=== PATIENT | female | born 1955 | race Caucasian/White ===

== ENCOUNTER 2020-06-08 17:12 | Inpatient (IN) | payer MEDICAID ==
[~2020-06-08] VITALS: Ht 172.7 cm; Wt 83.2 kg
[2020-06-08] MEDS ORDERED: IPRATROPIUM BROM 0.5 MG/2.5ML INH SOL NEB ONE (17:18)
[2020-06-08] MEDS ORDERED: ALBUTEROL SULF 2.5 MG/0.5ML(0.5%) NEB SOLN NEB ONE (17:18)
[2020-06-08] MEDS ORDERED: methylPREDNISolone SOD SUCC 125 MG/2 ML VL ONE (17:22)
[2020-06-08] MEDS ORDERED: DOXYCYCLINE 100MG/250ML 250 ML IV ONE (18:30)
[2020-06-08] MEDS ORDERED: SODIUM CHLORIDE 0.9% 500 ML IV ONE ×2 (18:30→23:15)
[2020-06-08 19:35] LABS: Basophils # (auto) 0 10 ^3/uL (0-0.2); Basophils % (auto) 0.1 % (0.0-2.0); Eosinophils # (auto) 0 10 ^3/uL (0-0.8); Hematocrit 33.3 % (36.0-46.0); Hemoglobin 11.3 g/dL (12.2-16.2); Lymphocytes # (auto) 0.6 10 ^3/uL (0.4-5.4); Mean Corpuscular Hemoglobin 28.3 pg (28.0-32.0); Mean Corpuscular Hgb Conc. 33.8 g/dL (32.0-36.0); Mean Corpuscular Volume 83.8 fL (80.0-100.0); Monocytes # (auto) 0.4 10 ^3/uL (0-1.3); Monocytes % (auto) 5.4 % (0.0-12.0); Neutrophils # (auto) 6.5 10 ^3/uL (1.6-8.6); Neutrophils % (auto) 86.5 % (37.0-80.0); Nucleated Red Blood Cells % 0.2 %; Platelet Count (auto) 400 10^3/uL (140-450); Red Blood Cells 3.97 10^6/uL (4.0-5.20); Red Cell Distribution Width 13.9 % (11.8-14.3); White Blood Cell 7.6 10^3/uL (4.4-10.8)
[2020-06-08 19:55] LABS: Albumin 2.8 g/dL (3.4-5.0); Anion Gap 9 (5-15); Blood Urea Nitrogen 28 mg/dL (7-18); Calcium 7.9 mg/dL (8.5-10.1); Carbon Dioxide 28 mmol/L (21-32); Chloride 102 mmol/L (98-107); Magnesium 2.4 mg/dL (1.6-2.6); Potassium 3.1 mmol/L (3.5-5.1); Sodium 139 mmol/L (136-145)
[2020-06-08 20:01] LABS: INR 1.17 (0.9-1.15); Partial Thromboplastin Time 27.3 sec (23.0-31.2)
[2020-06-08 20:03] LABS: Lactic Acid w/Reflex 2.1 mmol/L (0.4-2.0)
[2020-06-08 20:06] LABS: Alanine Aminotransferase 29 U/L (13-56); Alkaline Phosphatase 83 U/L (45-117); Aspartate Aminotransferase 111 U/L (15-37); BUN/Creatinine Ratio 34.6; Bilirubin, Total 0.8 mg/dL (0.2-1.0); GFR African American 92 mL/min; GFR Non-African American 76 mL/min; Glucose 148 mg/dL (74-106); Total Protein 7.6 g/dL (6.4-8.2)
[2020-06-08 20:15] LABS: CRP High Sensitivity > 19.0 mg/dL (< 0.3)
[2020-06-08] MEDS ORDERED: POTASSIUM CHL 20MEQ/100ML 100 ML IV ONE (21:00)
[2020-06-08] MEDS ORDERED: ENOXAPARIN SOD 80 MG/0.8ML SYRINGE SC ONE (21:00)
[2020-06-08] MEDS ORDERED: diphenhdrAMINE HCL 50 MG/1 ML VL IV ONE (23:00)
[2020-06-08] MEDS ORDERED: IOHEXOL 350 MG/ML 100ML IJ ONE (23:54)
[2020-06-09] MEDS ORDERED: ACETAMINOPHEN 500 MG TAB PO PRN (02:45)
[2020-06-09] MEDS ORDERED: NITROGLYCERIN 0.4 MG SL TAB SL PRN (02:45)
[2020-06-09] MEDS ORDERED: REMDESIVIR PER PHARMACY 0 ML IV SCH (02:45)
[2020-06-09] MEDS ORDERED: DEXTROSE (50%) 50ML SYRG IV PRN (02:45)
[2020-06-09] MEDS ORDERED: MORPHINE SULF INJ 2 MG/ML SYRINGE 1ML IV PRN (02:45)
[2020-06-09] MEDS ORDERED: ONDANSETRON HCL 4 MG/2 ML VIAL IV PRN (02:45)
[2020-06-09] MEDS ORDERED: VANCOMYCIN PER PHARMACY 0 MG IV SCH (02:45)
[2020-06-09] MEDS ORDERED: VANCOMYCIN 1GM/250ML 250 ML IV ONE (03:30)
[2020-06-09 05:30] LABS: Urine Bacteria NONE SEEN /hpf (None Seen); Urine Blood Negative /uL (Negative); Urine Specific Gravity 1.036 (1.001-1.035); Urine WBC 2 /hpf (0 - 5)
[2020-06-09 05:43] LABS: Alcohol, Urine < 3.0 mg/dL (0-10); Amphetamine Screen, Urine NEGATIVE (NEGATIVE); Barbiturate Scree,Urine NEGATIVE (NEGATIVE); Benzodiazephine Screen, Urine NEGATIVE (NEGATIVE); Cannabinoid Screen, Urine NEGATIVE (NEGATIVE); Cocaine Screen, Urine NEGATIVE (NEGATIVE); Opiate Scree,Urine POSITIVE (NEGATIVE); Phencyclidine Screen, Urine NEGATIVE (NEGATIVE)
[2020-06-09 05:47] LABS: Albumin 2.8 g/dL (3.4-5.0); Potassium 3.3 mmol/L (3.5-5.1)
[2020-06-09 05:56] LABS: BUN/Creatinine Ratio 41.9; Bilirubin, Total 0.6 mg/dL (0.2-1.0); Total Protein 7.6 g/dL (6.4-8.2)
[2020-06-09] MEDS: ACCU-CHEK COMFORT CURVE STRIP VI SCH ×4 (06:50→21:21)
[2020-06-09] MEDS: InsuLIN REG 1unit/0.01ml Soln (100units/ml) SC SCH ×4 (06:53→21:19)
[2020-06-09] MEDS ORDERED: ENOXAPARIN SOD 40 MG/0.4 ML SYRINGE SC SCH (10:00)
[2020-06-09] MEDS: BUDESONIDE (INHALATION) 180 MCG IH IN SCH ×2 (10:00→19:00)
[2020-06-09] MEDS ORDERED: ASPirin 81 mg TAB PO SCH (10:00)
[2020-06-09] MEDS: POTASSIUM CHL 20MEQ/100ML 100 ML IV SCH ×2 (11:45→12:16)
[2020-06-09] MEDS: ASCORBIC ACID 1,000 MG TAB PO SCH (11:58)
[2020-06-09] MEDS: CHOLECALCIFEROL (VITD3) 2,000 UNIT CAP PO SCH (11:58)
[2020-06-09] MEDS: ZINC SULFATE 220mg CAP or TAB PO SCH (11:58)
[2020-06-09] MEDS: DOXYCYCLINE 100MG/250ML 250 ML IV SCH ×2 (11:58→21:18)
[2020-06-09] MEDS: FAMOTIDINE 20 MG TAB PO SCH ×2 (11:58→21:20)
[2020-06-09] MEDS: DexAMETHasone SOD PHOS 10MG/1ML VIAL INJ IV SCH (11:58)
[2020-06-09] MEDS ORDERED: POTASSIUM CHLORIDE 40 MEQ, LIDOCAINE 1% (LOCAL ANESTH.) 4 ML in SODIUM CHL 0.9% 250 ML IV ONE (12:15)
[2020-06-09] MEDS ORDERED: VANCOMYCIN 1GM/250ML 250 ML IV SCH (16:00)
[2020-06-09] MEDS ORDERED: REMDESIVIR 200 MG in NS 210ml LOADING DOSE ADULT IV ONE (17:00)
[2020-06-09] MEDS ORDERED: cefTRIAXone 1GM/50ML D5W 50 ML IV ONE (17:45)
[2020-06-09] MEDS ORDERED: POTASSIUM CHL 20 Meq TABLET PO ONE (17:45)
[2020-06-09] MEDS ORDERED: LOSARTAN POTASSIUM 25 MG TAB PO ONE (17:45)
[2020-06-09] MEDS: FUROSEMIDE 40 MG/4 ML VIAL IV SCH (18:11)
[2020-06-09] MEDS: ATORVASTATIN 20 MG TAB PO SCH (21:20)
[2020-06-09] MEDS: ENOXAPARIN SOD 100 MG/1 ML SYRINGE SC SCH (21:20)
[2020-06-09] MEDS ORDERED: ATORVASTATIN 20 MG TAB PO SCH (22:00)
[2020-06-10] MEDS: FUROSEMIDE 40 MG/4 ML VIAL IV SCH ×2 (05:41→18:29)
[2020-06-10 05:42] LABS: Hemoglobin 11.9 g/dL (12.2-16.2)
[2020-06-10 05:44] LABS: Hematocrit 34.7 % (36.0-46.0); Mean Corpuscular Hemoglobin 28.7 pg (28.0-32.0); Mean Corpuscular Hgb Conc. 34.2 g/dL (32.0-36.0); Mean Corpuscular Volume 83.9 fL (80.0-100.0); Platelet Count (auto) 485 10^3/uL (140-450); Red Blood Cells 4.13 10^6/uL (4.0-5.20); Red Cell Distribution Width 14.1 % (11.8-14.3); White Blood Cell 17.6 10^3/uL (4.4-10.8)
[2020-06-10 06:06] LABS: Albumin 2.7 g/dL (3.4-5.0); Potassium 3.5 mmol/L (3.5-5.1)
[2020-06-10 06:08] LABS: Basophils % (manual) 0 (0.0-2.0); Blast Cells 0; Eosinophils % (manual) 0 (0-7); Metamyelocytes % 0; Promyelocytes % 0; Reactive Lymphocytes 0
[2020-06-10] MEDS: BUDESONIDE (INHALATION) 180 MCG IH IN SCH ×2 (06:11→22:00)
[2020-06-10 06:12] LABS: BUN/Creatinine Ratio 47.5; Bilirubin, Total 0.5 mg/dL (0.2-1.0); CRP High Sensitivity 14.1 mg/dL (< 0.3); Total Protein 7.5 g/dL (6.4-8.2)
[2020-06-10] MEDS: ACCU-CHEK COMFORT CURVE STRIP VI SCH ×4 (06:32→22:00)
[2020-06-10] MEDS: InsuLIN REG 1unit/0.01ml Soln (100units/ml) SC SCH ×4 (06:33→22:30)
[2020-06-10 08:54] LABS: Band Neutrophils % (manual) 1; Lymphocytes % (manual) 5 (10.0-50.0); Monocytes % (manual) 4 (0-12); Myelocytes % 1
[2020-06-10] MEDS: cefTRIAXone 1GM/50ML D5W 50 ML IV SCH (09:24)
[2020-06-10] MEDS: DexAMETHasone SOD PHOS 10MG/1ML VIAL INJ IV SCH (09:32)
[2020-06-10] MEDS: ASPirin 81 mg TAB PO SCH (09:33)
[2020-06-10] MEDS: ZINC SULFATE 220mg CAP or TAB PO SCH (09:33)
[2020-06-10] MEDS: POTASSIUM CHL 20 Meq TABLET PO SCH (09:33)
[2020-06-10] MEDS: ENOXAPARIN SOD 100 MG/1 ML SYRINGE SC SCH ×2 (09:41→22:30)
[2020-06-10] MEDS: LOSARTAN POTASSIUM 25 MG TAB PO SCH (09:41)
[2020-06-10] MEDS: ASCORBIC ACID 1,000 MG TAB PO SCH (09:41)
[2020-06-10] MEDS: CHOLECALCIFEROL (VITD3) 2,000 UNIT CAP PO SCH (09:41)
[2020-06-10] MEDS: FAMOTIDINE 20 MG TAB PO SCH ×2 (09:41→22:30)
[2020-06-10] MEDS: DOXYCYCLINE 100MG/250ML 250 ML IV SCH ×2 (10:08→22:15)
[2020-06-10] MEDS: REMDESIVIR 100 MG in SODIUM CHL 0.9% 250 ML IV SCH (17:01)
[2020-06-10] MEDS: ATORVASTATIN 20 MG TAB PO SCH (22:30)
[2020-06-11] MEDS: FUROSEMIDE 40 MG/4 ML VIAL IV SCH (06:14)
[2020-06-11] MEDS: ACCU-CHEK COMFORT CURVE STRIP VI SCH ×4 (07:00→22:00)
[2020-06-11] MEDS: InsuLIN REG 1unit/0.01ml Soln (100units/ml) SC SCH ×4 (07:00→22:22)
[2020-06-11 07:09] LABS: Potassium 3.4 mmol/L (3.5-5.1)
[2020-06-11 07:29] LABS: Albumin 3.1 g/dL (3.4-5.0); BUN/Creatinine Ratio 65.6; Bilirubin, Total 0.6 mg/dL (0.2-1.0); Calcium 8.7 mg/dL (8.5-10.1); Total Protein 7.9 g/dL (6.4-8.2)
[2020-06-11] MEDS: cefTRIAXone 1GM/50ML D5W 50 ML IV SCH (09:08)
[2020-06-11] MEDS: DOXYCYCLINE 100MG/250ML 250 ML IV SCH ×2 (09:09→21:56)
[2020-06-11] MEDS: DexAMETHasone SOD PHOS 10MG/1ML VIAL INJ IV SCH (09:09)
[2020-06-11] MEDS: ASPirin 81 mg TAB PO SCH (09:10)
[2020-06-11] MEDS: ASCORBIC ACID 1,000 MG TAB PO SCH (09:10)
[2020-06-11] MEDS: ZINC SULFATE 220mg CAP or TAB PO SCH (09:10)
[2020-06-11] MEDS: POTASSIUM CHL 20 Meq TABLET PO SCH (09:11)
[2020-06-11] MEDS: LOSARTAN POTASSIUM 25 MG TAB PO SCH (09:12)
[2020-06-11] MEDS: FAMOTIDINE 20 MG TAB PO SCH ×2 (09:12→21:56)
[2020-06-11] MEDS: CHOLECALCIFEROL (VITD3) 2,000 UNIT CAP PO SCH (09:13)
[2020-06-11] MEDS: ENOXAPARIN SOD 100 MG/1 ML SYRINGE SC SCH (10:00)
[2020-06-11] MEDS: BUDESONIDE (INHALATION) 180 MCG IH IN SCH ×2 (10:00→22:00)
[2020-06-11] MEDS: REMDESIVIR 100 MG in SODIUM CHL 0.9% 250 ML IV SCH (17:15)
[2020-06-11] MEDS: ENOXAPARIN SOD 40 MG/0.4 ML SYRINGE SC SCH (21:56)
[2020-06-11] MEDS: ATORVASTATIN 20 MG TAB PO SCH (21:56)
[2020-06-12 06:38] LABS: Albumin 3.1 g/dL (3.4-5.0); Calcium 8.7 mg/dL (8.5-10.1)
[2020-06-12 06:40] LABS: BUN/Creatinine Ratio 61.4
[2020-06-12 06:43] LABS: Bilirubin, Total 0.7 mg/dL (0.2-1.0); Total Protein 7.6 g/dL (6.4-8.2)
[2020-06-12] MEDS: ACCU-CHEK COMFORT CURVE STRIP VI SCH ×4 (06:43→22:43)
[2020-06-12] MEDS: InsuLIN REG 1unit/0.01ml Soln (100units/ml) SC SCH ×4 (06:49→22:43)
[2020-06-12 06:54] LABS: Potassium 2.7 mmol/L (3.5-5.1)
[2020-06-12] MEDS: BUDESONIDE (INHALATION) 180 MCG IH IN SCH ×2 (09:50→19:27)
[2020-06-12] MEDS ORDERED: FUROSEMIDE 20 MG/2 ML VIAL IV SCH (10:00)
[2020-06-12] MEDS: LOSARTAN POTASSIUM 25 MG TAB PO SCH (12:38)
[2020-06-12] MEDS: DexAMETHasone SOD PHOS 10MG/1ML VIAL INJ IV SCH (12:38)
[2020-06-12] MEDS: DOXYCYCLINE 100MG/250ML 250 ML IV SCH ×2 (12:38→22:03)
[2020-06-12] MEDS: ZINC SULFATE 220mg CAP or TAB PO SCH (12:38)
[2020-06-12] MEDS: ASPirin 81 mg TAB PO SCH (12:38)
[2020-06-12] MEDS: ENOXAPARIN SOD 40 MG/0.4 ML SYRINGE SC SCH ×2 (12:39→22:04)
[2020-06-12] MEDS: ASCORBIC ACID 1,000 MG TAB PO SCH (12:39)
[2020-06-12] MEDS: CHOLECALCIFEROL (VITD3) 2,000 UNIT CAP PO SCH (12:39)
[2020-06-12] MEDS: FAMOTIDINE 20 MG TAB PO SCH ×2 (12:39→22:00)
[2020-06-12] MEDS: POTASSIUM CHL 20 Meq TABLET PO SCH (12:39)
[2020-06-12] MEDS: cefTRIAXone 1GM/50ML D5W 50 ML IV SCH (12:40)
[2020-06-12] MEDS ORDERED: CARVEDILOL 3.125 MG TAB PO ONE (14:00)
[2020-06-12] MEDS ORDERED: POTASSIUM CHL 20MEQ/100ML 100 ML IV ONE (14:00)
[2020-06-12] MEDS ORDERED: POTASSIUM CHL 20 Meq TABLET PO ONE (14:00)
[2020-06-12] MEDS: REMDESIVIR 100 MG in SODIUM CHL 0.9% 250 ML IV SCH (17:44)
[2020-06-12] MEDS: ATORVASTATIN 20 MG TAB PO SCH (22:00)
[2020-06-12] MEDS: CARVEDILOL 3.125 MG TAB PO SCH (22:00)
[2020-06-13] MEDS: ACCU-CHEK COMFORT CURVE STRIP VI SCH ×4 (06:43→23:25)
[2020-06-13] MEDS: InsuLIN REG 1unit/0.01ml Soln (100units/ml) SC SCH ×4 (06:43→22:00)
[2020-06-13 06:55] LABS: Hematocrit 40.2 % (36.0-46.0); Hemoglobin 13.3 g/dL (12.2-16.2); Mean Corpuscular Hemoglobin 27.8 pg (28.0-32.0); Mean Corpuscular Hgb Conc. 32.9 g/dL (32.0-36.0); Mean Corpuscular Volume 84.4 fL (80.0-100.0); Platelet Count (auto) 601 10^3/uL (140-450); Red Blood Cells 4.77 10^6/uL (4.0-5.20); Red Cell Distribution Width 14.4 % (11.8-14.3); White Blood Cell 12.4 10^3/uL (4.4-10.8)
[2020-06-13 07:13] LABS: Basophils % (manual) 0 (0.0-2.0); Blast Cells 0; Eosinophils % (manual) 0 (0-7); Metamyelocytes % 0; Promyelocytes % 0
[2020-06-13 08:31] LABS: BUN/Creatinine Ratio 60.3; Calcium 8.9 mg/dL (8.5-10.1)
[2020-06-13 08:33] LABS: Bilirubin, Total 0.7 mg/dL (0.2-1.0); Total Protein 7.4 g/dL (6.4-8.2)
[2020-06-13 08:37] LABS: Potassium 2.8 mmol/L (3.5-5.1)
[2020-06-13] MEDS: cefTRIAXone 1GM/50ML D5W 50 ML IV SCH (09:01)
[2020-06-13 09:55] LABS: Band Neutrophils % (manual) 1; Lymphocytes % (manual) 7 (10.0-50.0); Monocytes % (manual) 2 (0-12); Myelocytes % 1; Reactive Lymphocytes 1
[2020-06-13] MEDS: DexAMETHasone SOD PHOS 10MG/1ML VIAL INJ IV SCH (10:04)
[2020-06-13] MEDS: POTASSIUM CHL 20MEQ/100ML 100 ML IV SCH ×3 (10:04→13:39)
[2020-06-13] MEDS: DOXYCYCLINE 100MG/250ML 250 ML IV SCH ×2 (10:04→21:28)
[2020-06-13] MEDS: ZINC SULFATE 220mg CAP or TAB PO SCH (10:04)
[2020-06-13] MEDS: ASPirin 81 mg TAB PO SCH (10:04)
[2020-06-13] MEDS: ASCORBIC ACID 1,000 MG TAB PO SCH (10:07)
[2020-06-13] MEDS: CHOLECALCIFEROL (VITD3) 2,000 UNIT CAP PO SCH (10:07)
[2020-06-13] MEDS: ENOXAPARIN SOD 40 MG/0.4 ML SYRINGE SC SCH ×2 (10:07→21:30)
[2020-06-13] MEDS: FAMOTIDINE 20 MG TAB PO SCH ×2 (10:07→21:30)
[2020-06-13] MEDS: LOSARTAN POTASSIUM 25 MG TAB PO SCH (10:07)
[2020-06-13] MEDS: CARVEDILOL 3.125 MG TAB PO SCH ×2 (10:07→21:29)
[2020-06-13] MEDS: POTASSIUM CHL 20 Meq TABLET PO SCH (10:07)
[2020-06-13] MEDS: BUDESONIDE (INHALATION) 180 MCG IH IN SCH ×2 (10:48→20:26)
[2020-06-13] MEDS ORDERED: SODIUM CHLORIDE 0.9% 1,000 ML IV ONE (15:00)
[2020-06-13] MEDS: REMDESIVIR 100 MG in SODIUM CHL 0.9% 250 ML IV SCH (17:12)
[2020-06-13] MEDS: ALBUTEROL SULF HFA 90MCG INH 200DOSE IN PRN (20:26)
[2020-06-13] MEDS ORDERED: diphenhdrAMINE HCL 50 MG/1 ML VL IV ONE (21:15)
[2020-06-13] MEDS ORDERED: LORazepam 2MG/ML-1ML VIAL IV ONE (21:15)
[2020-06-13] MEDS: ATORVASTATIN 20 MG TAB PO SCH (21:29)
[2020-06-14] MEDS: BUDESONIDE (INHALATION) 180 MCG IH IN SCH ×2 (06:45→22:00)
[2020-06-14] MEDS: InsuLIN REG 1unit/0.01ml Soln (100units/ml) SC SCH ×4 (07:00→22:00)
[2020-06-14] MEDS: ACCU-CHEK COMFORT CURVE STRIP VI SCH ×4 (07:03→22:22)
[2020-06-14 07:49] LABS: BUN/Creatinine Ratio 64.2; Calcium 8.4 mg/dL (8.5-10.1); Magnesium 2.6 mg/dL (1.6-2.6); Potassium 4.4 mmol/L (3.5-5.1)
[2020-06-14] MEDS ORDERED: D5W/SOD CHL 0.45% 1,000 ML IV ONE (10:30)
[2020-06-14] MEDS: CHOLECALCIFEROL (VITD3) 2,000 UNIT CAP PO SCH (13:11)
[2020-06-14] MEDS: POTASSIUM CHL 20 Meq TABLET PO SCH (13:11)
[2020-06-14] MEDS: ASCORBIC ACID 1,000 MG TAB PO SCH (13:11)
[2020-06-14] MEDS: FAMOTIDINE 20 MG TAB PO SCH ×2 (13:11→22:45)
[2020-06-14] MEDS: ASPirin 81 mg TAB PO SCH (13:12)
[2020-06-14] MEDS: CARVEDILOL 3.125 MG TAB PO SCH ×2 (13:12→22:45)
[2020-06-14] MEDS: LOSARTAN POTASSIUM 25 MG TAB PO SCH (13:12)
[2020-06-14] MEDS: ZINC SULFATE 220mg CAP or TAB PO SCH (13:12)
[2020-06-14] MEDS: cefTRIAXone 1GM/50ML D5W 50 ML IV SCH (14:38)
[2020-06-14] MEDS: DexAMETHasone SOD PHOS 10MG/1ML VIAL INJ IV SCH (14:38)
[2020-06-14] MEDS: D5W 5% 1,000 ML IV SCH ×2 (14:38→23:45)
[2020-06-14] MEDS: ENOXAPARIN SOD 40 MG/0.4 ML SYRINGE SC SCH ×2 (14:44→22:46)
[2020-06-14 16:14] LABS: Creatinine, Urine 128 mg/dL (30.0-125.0); Sodium Urine 47 mmol/L (40-220)
[2020-06-14] MEDS: ATORVASTATIN 20 MG TAB PO SCH (22:45)
[2020-06-15] MEDS ORDERED: D5W/SOD CHL 0.45% 1,000 ML IV SCH
[2020-06-15 06:54] LABS: BUN/Creatinine Ratio 55.9; Calcium 8.8 mg/dL (8.5-10.1)
[2020-06-15] MEDS: InsuLIN REG 1unit/0.01ml Soln (100units/ml) SC SCH ×4 (07:00→22:00)
[2020-06-15] MEDS: ACCU-CHEK COMFORT CURVE STRIP VI SCH ×4 (07:03→22:00)
[2020-06-15] MEDS: BUDESONIDE (INHALATION) 180 MCG IH IN SCH ×2 (09:02→20:31)
[2020-06-15] MEDS: ASPirin 81 mg TAB PO SCH (09:10)
[2020-06-15] MEDS: ASCORBIC ACID 1,000 MG TAB PO SCH (09:10)
[2020-06-15] MEDS: ZINC SULFATE 220mg CAP or TAB PO SCH (09:10)
[2020-06-15] MEDS: FAMOTIDINE 20 MG TAB PO SCH ×2 (09:11→22:00)
[2020-06-15] MEDS: POTASSIUM CHL 20 Meq TABLET PO SCH (09:11)
[2020-06-15] MEDS: ENOXAPARIN SOD 40 MG/0.4 ML SYRINGE SC SCH ×2 (09:11→22:00)
[2020-06-15] MEDS: DexAMETHasone SOD PHOS 10MG/1ML VIAL INJ IV SCH (09:12)
[2020-06-15] MEDS: LOSARTAN POTASSIUM 25 MG TAB PO SCH (09:12)
[2020-06-15] MEDS: cefTRIAXone 1GM/50ML D5W 50 ML IV SCH (09:12)
[2020-06-15] MEDS: CARVEDILOL 3.125 MG TAB PO SCH ×2 (09:12→22:00)
[2020-06-15] MEDS: CHOLECALCIFEROL (VITD3) 2,000 UNIT CAP PO SCH (09:12)
[2020-06-15] MEDS: D5W 5% 1,000 ML IV SCH ×3 (09:59→23:10)
[2020-06-15] MEDS: ALBUTEROL SULF HFA 90MCG INH 200DOSE IN PRN (20:31)
[2020-06-15] MEDS: ATORVASTATIN 20 MG TAB PO SCH (22:00)
[2020-06-16] MEDS: D5W 5% 1,000 ML IV SCH ×3 (06:11→19:07)
[2020-06-16 06:59] LABS: Potassium 3.7 mmol/L (3.5-5.1)
[2020-06-16] MEDS: InsuLIN REG 1unit/0.01ml Soln (100units/ml) SC SCH ×4 (07:00→22:00)
[2020-06-16] MEDS: ACCU-CHEK COMFORT CURVE STRIP VI SCH ×4 (07:00→23:34)
[2020-06-16 07:16] LABS: BUN/Creatinine Ratio 66.7; Calcium 8.4 mg/dL (8.5-10.1)
[2020-06-16] MEDS: cefTRIAXone 1GM/50ML D5W 50 ML IV SCH (09:10)
[2020-06-16] MEDS: ASPirin 81 mg TAB PO SCH (11:00)
[2020-06-16] MEDS: POTASSIUM CHL 20 Meq TABLET PO SCH (11:00)
[2020-06-16] MEDS: ASCORBIC ACID 1,000 MG TAB PO SCH (11:00)
[2020-06-16] MEDS: ZINC SULFATE 220mg CAP or TAB PO SCH (11:00)
[2020-06-16] MEDS: ENOXAPARIN SOD 40 MG/0.4 ML SYRINGE SC SCH ×2 (11:00→22:27)
[2020-06-16] MEDS: LOSARTAN POTASSIUM 25 MG TAB PO SCH (11:00)
[2020-06-16] MEDS: FAMOTIDINE 20 MG TAB PO SCH ×2 (11:00→22:27)
[2020-06-16] MEDS: CARVEDILOL 3.125 MG TAB PO SCH ×2 (11:00→22:00)
[2020-06-16] MEDS: DexAMETHasone SOD PHOS 10MG/1ML VIAL INJ IV SCH (11:00)
[2020-06-16] MEDS: CHOLECALCIFEROL (VITD3) 2,000 UNIT CAP PO SCH (11:00)
[2020-06-16] MEDS: BUDESONIDE (INHALATION) 180 MCG IH IN SCH ×2 (14:50→22:00)
[2020-06-16] MEDS: ATORVASTATIN 20 MG TAB PO SCH (22:27)
[2020-06-17] MEDS: D5W 5% 1,000 ML IV SCH ×4 (01:50→23:00)
[2020-06-17] MEDS: ALBUTEROL SULF HFA 90MCG INH 200DOSE IN PRN ×2 (06:50→20:14)
[2020-06-17] MEDS: BUDESONIDE (INHALATION) 180 MCG IH IN SCH ×2 (06:50→18:57)
[2020-06-17 07:09] LABS: Hematocrit 34.3 % (36.0-46.0); Hemoglobin 11.3 g/dL (12.2-16.2); Mean Corpuscular Hemoglobin 28.2 pg (28.0-32.0); Mean Corpuscular Hgb Conc. 33.1 g/dL (32.0-36.0); Mean Corpuscular Volume 85.2 fL (80.0-100.0); Platelet Count (auto) 380 10^3/uL (140-450); Red Blood Cells 4.03 10^6/uL (4.0-5.20); Red Cell Distribution Width 14.4 % (11.8-14.3)
[2020-06-17 07:12] LABS: Basophils % (manual) 0 (0.0-2.0); Blast Cells 0; Metamyelocytes % 0; Myelocytes % 0; Promyelocytes % 0; Reactive Lymphocytes 0
[2020-06-17 07:30] LABS: Potassium 3.4 mmol/L (3.5-5.1)
[2020-06-17 07:35] LABS: BUN/Creatinine Ratio 65.7; Calcium 8.2 mg/dL (8.5-10.1)
[2020-06-17 09:09] LABS: Band Neutrophils % (manual) 4; Eosinophils % (manual) 1 (0-7); Lymphocytes % (manual) 11 (10.0-50.0); Monocytes % (manual) 4 (0-12)
[2020-06-17] MEDS: LOSARTAN POTASSIUM 25 MG TAB PO SCH (10:00)
[2020-06-17] MEDS ORDERED: POTASSIUM CHL 20 Meq TABLET PO ONE (10:00)
[2020-06-17] MEDS: ASCORBIC ACID 1,000 MG TAB PO SCH (10:00)
[2020-06-17] MEDS: FAMOTIDINE 20 MG TAB PO SCH ×2 (10:00→22:58)
[2020-06-17] MEDS: ZINC SULFATE 220mg CAP or TAB PO SCH (10:00)
[2020-06-17] MEDS: ASPirin 81 mg TAB PO SCH (10:00)
[2020-06-17] MEDS: DexAMETHasone SOD PHOS 10MG/1ML VIAL INJ IV SCH (10:00)
[2020-06-17] MEDS: POTASSIUM CHL 20 Meq TABLET PO SCH (10:00)
[2020-06-17] MEDS: CARVEDILOL 3.125 MG TAB PO SCH ×2 (10:00→23:00)
[2020-06-17] MEDS: ENOXAPARIN SOD 40 MG/0.4 ML SYRINGE SC SCH ×2 (10:00→22:59)
[2020-06-17] MEDS: CHOLECALCIFEROL (VITD3) 2,000 UNIT CAP PO SCH (10:00)
[2020-06-17] MEDS: ACCU-CHEK COMFORT CURVE STRIP VI SCH ×4 (11:30→22:59)
[2020-06-17] MEDS: InsuLIN REG 1unit/0.01ml Soln (100units/ml) SC SCH ×4 (11:30→22:00)
[2020-06-17] MEDS: cefTRIAXone 1GM/50ML D5W 50 ML IV SCH (12:59)
[2020-06-17 22:40] VITALS: BP 118/64
[2020-06-17] MEDS: ATORVASTATIN 20 MG TAB PO SCH (22:59)
[2020-06-18] VITALS: BP 118/64
[2020-06-18] MEDS: D5W 5% 1,000 ML IV SCH ×3 (04:27→18:13)
[2020-06-18] MEDS: InsuLIN REG 1unit/0.01ml Soln (100units/ml) SC SCH ×4 (06:40→21:53)
[2020-06-18] MEDS: ACCU-CHEK COMFORT CURVE STRIP VI SCH ×4 (06:40→21:53)
[2020-06-18] MEDS: ALBUTEROL SULF HFA 90MCG INH 200DOSE IN PRN ×2 (06:45→21:08)
[2020-06-18] MEDS: BUDESONIDE (INHALATION) 180 MCG IH IN SCH ×2 (06:45→21:08)
[2020-06-18 08:00] VITALS: BP 132/58
[2020-06-18] MEDS: cefTRIAXone 1GM/50ML D5W 50 ML IV SCH (09:28)
[2020-06-18] MEDS: DexAMETHasone SOD PHOS 10MG/1ML VIAL INJ IV SCH (10:35)
[2020-06-18] MEDS: ENOXAPARIN SOD 40 MG/0.4 ML SYRINGE SC SCH ×2 (10:35→21:52)
[2020-06-18] MEDS: ZINC SULFATE 220mg CAP or TAB PO SCH (10:36)
[2020-06-18] MEDS: CARVEDILOL 3.125 MG TAB PO SCH ×2 (10:36→21:52)
[2020-06-18] MEDS: POTASSIUM CHL 20 Meq TABLET PO SCH (10:36)
[2020-06-18] MEDS: LOSARTAN POTASSIUM 25 MG TAB PO SCH (10:37)
[2020-06-18] MEDS: FAMOTIDINE 20 MG TAB PO SCH ×2 (10:37→21:52)
[2020-06-18] MEDS: ASPirin 81 mg TAB PO SCH (10:37)
[2020-06-18] MEDS: ASCORBIC ACID 1,000 MG TAB PO SCH (10:37)
[2020-06-18] MEDS: CHOLECALCIFEROL (VITD3) 2,000 UNIT CAP PO SCH (10:38)
[2020-06-18 16:29] VITALS: BP 120/55
[2020-06-18] MEDS: ATORVASTATIN 20 MG TAB PO SCH (21:53)
[2020-06-19] VITALS: BP 117/56
[2020-06-19] MEDS ORDERED: MORPHINE SULF INJ 2 MG/ML SYRINGE 1ML IV PRN (02:45)
[2020-06-19] MEDS ORDERED: NITROGLYCERIN 0.4 MG SL TAB SL PRN (02:45)
[2020-06-19] MEDS: InsuLIN REG 1unit/0.01ml Soln (100units/ml) SC SCH ×4 (06:32→22:00)
[2020-06-19] MEDS: ACCU-CHEK COMFORT CURVE STRIP VI SCH ×4 (06:32→22:24)
[2020-06-19] MEDS: BUDESONIDE (INHALATION) 180 MCG IH IN SCH ×2 (07:54→20:04)
[2020-06-19] MEDS: ALBUTEROL SULF HFA 90MCG INH 200DOSE IN PRN ×2 (07:54→20:04)
[2020-06-19 08:00] VITALS: BP 143/64
[2020-06-19 09:13] LABS: Basophils # (auto) 0 10 ^3/uL (0-0.2); Basophils % (auto) 0.3 % (0.0-2.0); Eosinophils # (auto) 0 10 ^3/uL (0-0.8); Eosinophils % (auto) 0.1 % (0.0-7.0); Hematocrit 35.4 % (36.0-46.0); Hemoglobin 11.1 g/dL (12.2-16.2); Lymphocytes # (auto) 0.8 10 ^3/uL (0.4-5.4); Mean Corpuscular Hemoglobin 27.6 pg (28.0-32.0); Mean Corpuscular Hgb Conc. 31.2 g/dL (32.0-36.0); Mean Corpuscular Volume 88.5 fL (80.0-100.0); Monocytes # (auto) 0.4 10 ^3/uL (0-1.3); Neutrophils # (auto) 7.5 10 ^3/uL (1.6-8.6); Neutrophils % (auto) 85.6 % (37.0-80.0); Platelet Count (auto) 285 10^3/uL (140-450); Red Cell Distribution Width 14.4 % (11.8-14.3); White Blood Cell 8.7 10^3/uL (4.4-10.8)
[2020-06-19 09:30] LABS: Potassium 3.8 mmol/L (3.5-5.1)
[2020-06-19] MEDS: DexAMETHasone SOD PHOS 10MG/1ML VIAL INJ IV SCH (11:03)
[2020-06-19] MEDS: cefTRIAXone 1GM/50ML D5W 50 ML IV SCH (11:03)
[2020-06-19] MEDS: ASPirin 81 mg TAB PO SCH (11:03)
[2020-06-19] MEDS: ZINC SULFATE 220mg CAP or TAB PO SCH (11:03)
[2020-06-19] MEDS: CARVEDILOL 3.125 MG TAB PO SCH ×2 (11:04→22:24)
[2020-06-19] MEDS: LOSARTAN POTASSIUM 25 MG TAB PO SCH (11:04)
[2020-06-19] MEDS: FAMOTIDINE 20 MG TAB PO SCH ×2 (11:04→22:23)
[2020-06-19] MEDS: POTASSIUM CHL 20 Meq TABLET PO SCH (11:04)
[2020-06-19] MEDS: ASCORBIC ACID 1,000 MG TAB PO SCH (11:05)
[2020-06-19] MEDS: ENOXAPARIN SOD 40 MG/0.4 ML SYRINGE SC SCH ×2 (11:05→22:24)
[2020-06-19] MEDS: CHOLECALCIFEROL (VITD3) 2,000 UNIT CAP PO SCH (11:05)
[2020-06-19 11:22] LABS: Calcium 8.5 mg/dL (8.5-10.1)
[2020-06-19 15:49] VITALS: BP 122/61
[2020-06-19] MEDS ORDERED: FUROSEMIDE 20 MG/2 ML VIAL IV ONE (20:30)
[2020-06-19] MEDS ORDERED: FUROSEMIDE 40 MG/4 ML VIAL ONE (21:02)
[2020-06-19] MEDS: ATORVASTATIN 20 MG TAB PO SCH (22:24)
[2020-06-20] VITALS: BP 114/63
[2020-06-20] MEDS: ACCU-CHEK COMFORT CURVE STRIP VI SCH ×4 (06:57→22:24)
[2020-06-20] MEDS: InsuLIN REG 1unit/0.01ml Soln (100units/ml) SC SCH ×4 (06:57→22:48)
[2020-06-20] MEDS: BUDESONIDE (INHALATION) 180 MCG IH IN SCH ×2 (07:28→21:35)
[2020-06-20] MEDS: ALBUTEROL SULF HFA 90MCG INH 200DOSE IN PRN ×2 (07:28→21:35)
[2020-06-20 08:00] VITALS: BP 142/70
[2020-06-20] MEDS: cefTRIAXone 1GM/50ML D5W 50 ML IV SCH (09:18)
[2020-06-20] MEDS: ASCORBIC ACID 1,000 MG TAB PO SCH (09:19)
[2020-06-20] MEDS: FAMOTIDINE 20 MG TAB PO SCH ×2 (09:19→22:17)
[2020-06-20] MEDS: CHOLECALCIFEROL (VITD3) 2,000 UNIT CAP PO SCH (09:19)
[2020-06-20] MEDS: ZINC SULFATE 220mg CAP or TAB PO SCH (09:19)
[2020-06-20] MEDS: POTASSIUM CHL 20 Meq TABLET PO SCH (09:19)
[2020-06-20] MEDS: CARVEDILOL 3.125 MG TAB PO SCH (09:20)
[2020-06-20] MEDS: ASPirin 81 mg TAB PO SCH (09:20)
[2020-06-20] MEDS: LOSARTAN POTASSIUM 25 MG TAB PO SCH (09:21)
[2020-06-20] MEDS: DexAMETHasone SOD PHOS 10MG/1ML VIAL INJ IV SCH (09:22)
[2020-06-20] MEDS: ENOXAPARIN SOD 40 MG/0.4 ML SYRINGE SC SCH ×2 (09:22→22:19)
[2020-06-20] MEDS ORDERED: FUROSEMIDE 20 MG/2 ML VIAL IV SCH (10:00)
[2020-06-20 16:00] VITALS: BP 121/55
[2020-06-20] MEDS: ATORVASTATIN 20 MG TAB PO SCH (22:18)
[2020-06-20 23:38] VITALS: BP 126/67
[2020-06-21] MEDS: CARVEDILOL 3.125 MG TAB PO SCH ×3 (00:32→22:05)
[2020-06-21] MEDS: InsuLIN REG 1unit/0.01ml Soln (100units/ml) SC SCH ×4 (06:02→21:46)
[2020-06-21] MEDS: ACCU-CHEK COMFORT CURVE STRIP VI SCH ×4 (06:02→21:46)
[2020-06-21 06:45] LABS: Basophils # (auto) 0 10 ^3/uL (0-0.2); Basophils % (auto) 0.5 % (0.0-2.0); Eosinophils # (auto) 0 10 ^3/uL (0-0.8); Eosinophils % (auto) 0.1 % (0.0-7.0); Hematocrit 34.9 % (36.0-46.0); Hemoglobin 11.6 g/dL (12.2-16.2); Lymphocytes # (auto) 0.8 10 ^3/uL (0.4-5.4); Mean Corpuscular Hemoglobin 28.1 pg (28.0-32.0); Mean Corpuscular Hgb Conc. 33.4 g/dL (32.0-36.0); Mean Corpuscular Volume 84.2 fL (80.0-100.0); Monocytes # (auto) 0.6 10 ^3/uL (0-1.3); Monocytes % (auto) 6.4 % (0.0-12.0); Neutrophils # (auto) 8.6 10 ^3/uL (1.6-8.6); Platelet Count (auto) 325 10^3/uL (140-450); Red Blood Cells 4.14 10^6/uL (4.0-5.20); White Blood Cell 10.1 10^3/uL (4.4-10.8)
[2020-06-21 07:33] LABS: Anion Gap 4 (5-15); Carbon Dioxide 26 mmol/L (21-32); Chloride 109 mmol/L (98-107); Glucose 98 mg/dL (74-106); Sodium 139 mmol/L (136-145)
[2020-06-21 07:34] LABS: BUN/Creatinine Ratio 66.7; Blood Urea Nitrogen 20 mg/dL (7-18); Calcium 8.6 mg/dL (8.5-10.1); GFR African American 288 mL/min; GFR Non-African American 238 mL/min; Magnesium 2.3 mg/dL (1.6-2.6)
[2020-06-21 08:00] VITALS: BP 125/59
[2020-06-21] MEDS: cefTRIAXone 1GM/50ML D5W 50 ML IV SCH (08:47)
[2020-06-21] MEDS: DexAMETHasone SOD PHOS 10MG/1ML VIAL INJ IV SCH (09:00)
[2020-06-21] MEDS: FUROSEMIDE 40 MG/4 ML VIAL IV SCH (09:00)
[2020-06-21] MEDS: ASPirin 81 mg TAB PO SCH (09:00)
[2020-06-21] MEDS: ZINC SULFATE 220mg CAP or TAB PO SCH (09:01)
[2020-06-21] MEDS: CHOLECALCIFEROL (VITD3) 2,000 UNIT CAP PO SCH (09:02)
[2020-06-21] MEDS: LOSARTAN POTASSIUM 25 MG TAB PO SCH (09:02)
[2020-06-21] MEDS: ASCORBIC ACID 1,000 MG TAB PO SCH (09:02)
[2020-06-21] MEDS: FAMOTIDINE 20 MG TAB PO SCH ×2 (09:02→22:05)
[2020-06-21] MEDS: POTASSIUM CHL 20 Meq TABLET PO SCH (09:02)
[2020-06-21] MEDS: ENOXAPARIN SOD 40 MG/0.4 ML SYRINGE SC SCH ×2 (09:03→22:06)
[2020-06-21] MEDS: ALBUTEROL SULF HFA 90MCG INH 200DOSE IN PRN ×2 (09:11→19:41)
[2020-06-21] MEDS: BUDESONIDE (INHALATION) 180 MCG IH IN SCH ×2 (09:11→19:41)
[2020-06-21 16:00] VITALS: BP 118/62
[2020-06-21 16:20] VITALS: BP 118/62
[2020-06-21] MEDS: ATORVASTATIN 20 MG TAB PO SCH (22:05)
[2020-06-22] VITALS: BP 115/65
[2020-06-22] MEDS: ACCU-CHEK COMFORT CURVE STRIP VI SCH ×4 (06:01→22:00)
[2020-06-22] MEDS: InsuLIN REG 1unit/0.01ml Soln (100units/ml) SC SCH ×4 (06:01→22:47)
[2020-06-22 08:00] VITALS: BP 131/69
[2020-06-22] MEDS: BUDESONIDE (INHALATION) 180 MCG IH IN SCH ×2 (10:14→19:58)
[2020-06-22] MEDS: ENOXAPARIN SOD 40 MG/0.4 ML SYRINGE SC SCH ×2 (10:25→22:42)
[2020-06-22] MEDS: DexAMETHasone SOD PHOS 10MG/1ML VIAL INJ IV SCH (10:25)
[2020-06-22] MEDS: FUROSEMIDE 40 MG/4 ML VIAL IV SCH (10:26)
[2020-06-22] MEDS: ASPirin 81 mg TAB PO SCH (10:26)
[2020-06-22] MEDS: CARVEDILOL 3.125 MG TAB PO SCH ×2 (10:26→22:42)
[2020-06-22] MEDS: LOSARTAN POTASSIUM 25 MG TAB PO SCH (10:27)
[2020-06-22] MEDS: CHOLECALCIFEROL (VITD3) 2,000 UNIT CAP PO SCH (10:27)
[2020-06-22] MEDS: ZINC SULFATE 220mg CAP or TAB PO SCH (10:27)
[2020-06-22] MEDS: FAMOTIDINE 20 MG TAB PO SCH ×2 (10:27→22:42)
[2020-06-22] MEDS: POTASSIUM CHL 20 Meq TABLET PO SCH (10:27)
[2020-06-22] MEDS: ASCORBIC ACID 1,000 MG TAB PO SCH (10:27)
[2020-06-22 14:00] VITALS: BP 96/54
[2020-06-22 16:00] VITALS: BP 96/54
[2020-06-22] MEDS: ALBUTEROL SULF HFA 90MCG INH 200DOSE IN PRN (19:58)
[2020-06-22] MEDS: ATORVASTATIN 20 MG TAB PO SCH (22:42)
[2020-06-23] VITALS: BP 121/61
[2020-06-23] MEDS: ACCU-CHEK COMFORT CURVE STRIP VI SCH ×3 (06:12→17:00)
[2020-06-23] MEDS: InsuLIN REG 1unit/0.01ml Soln (100units/ml) SC SCH ×3 (06:12→17:00)
[2020-06-23 06:27] LABS: INR 0.99 (0.9-1.15); Partial Thromboplastin Time 25.9 sec (23.0-31.2)
[2020-06-23 07:00] LABS: Albumin 2.8 g/dL (3.4-5.0); BUN/Creatinine Ratio 64.1; Bilirubin, Total 0.4 mg/dL (0.2-1.0); Calcium 8.7 mg/dL (8.5-10.1); Magnesium 2.2 mg/dL (1.6-2.6); Phosphorus 3.8 mg/dL (2.5-4.90); Total Protein 6.8 g/dL (6.4-8.2)
[2020-06-23 07:01] LABS: Basophils # (auto) 0.1 10 ^3/uL (0-0.2); Basophils % (auto) 0.8 % (0.0-2.0); Eosinophils # (auto) 0 10 ^3/uL (0-0.8); Eosinophils % (auto) 0.2 % (0.0-7.0); Hematocrit 39.1 % (36.0-46.0); Hemoglobin 12.9 g/dL (12.2-16.2); Mean Corpuscular Hgb Conc. 33.1 g/dL (32.0-36.0); Mean Corpuscular Volume 84.4 fL (80.0-100.0); Monocytes # (auto) 0.6 10 ^3/uL (0-1.3); Monocytes % (auto) 6.1 % (0.0-12.0); Neutrophils # (auto) 8.6 10 ^3/uL (1.6-8.6); Neutrophils % (auto) 82.9 % (37.0-80.0); Nucleated Red Blood Cells % 0.3 %; Platelet Count (auto) 333 10^3/uL (140-450); Red Blood Cells 4.63 10^6/uL (4.0-5.20); Red Cell Distribution Width 14.3 % (11.8-14.3); White Blood Cell 10.3 10^3/uL (4.4-10.8)
[2020-06-23] MEDS: ALBUTEROL SULF HFA 90MCG INH 200DOSE IN PRN (07:10)
[2020-06-23] MEDS: BUDESONIDE (INHALATION) 180 MCG IH IN SCH (07:10)
[2020-06-23 08:00] VITALS: BP 110/49
[2020-06-23] MEDS: POTASSIUM CHL 20 Meq TABLET PO SCH (09:44)
[2020-06-23] MEDS: ASCORBIC ACID 1,000 MG TAB PO SCH (09:44)
[2020-06-23] MEDS: ZINC SULFATE 220mg CAP or TAB PO SCH (09:45)
[2020-06-23] MEDS: CARVEDILOL 3.125 MG TAB PO SCH (09:45)
[2020-06-23] MEDS: FAMOTIDINE 20 MG TAB PO SCH (09:45)
[2020-06-23] MEDS: CHOLECALCIFEROL (VITD3) 2,000 UNIT CAP PO SCH (09:45)
[2020-06-23] MEDS: ASPirin 81 mg TAB PO SCH (09:45)
[2020-06-23] MEDS: FUROSEMIDE 40 MG/4 ML VIAL IV SCH (09:46)
[2020-06-23] MEDS: LOSARTAN POTASSIUM 25 MG TAB PO SCH (09:46)
[2020-06-23] MEDS: ENOXAPARIN SOD 40 MG/0.4 ML SYRINGE SC SCH (09:46)
[2020-06-23] MEDS: DexAMETHasone SOD PHOS 10MG/1ML VIAL INJ IV SCH (09:46)
[2020-06-23 16:00] VITALS: BP 114/55
[2020-06-23 17:37] VITALS: BP 114/55
== END 2020-06-23 19:17 | disposition home health service (06) | DRG 720 ==
LOC: EDBD 17:12 → ER 17:12 → OVERFLOW 17:13 → TELE-WESTW 06-17 21:56 → WEST WING 06-19 02:15 → TELE-WESTW 06-19 20:22
PROVIDERS: ADMIT Nurse Practitioner; ATTEND Internal Medicine
PROC: 5A09357 Assistance with Respiratory Ventilation, Less than 24 Consecutive Hours, Continuous Positive Airway Pressure (ICD-10-PCS; principal; 2020-06-08)
PROC: XW033E5 Introduction of Remdesivir Anti-infective into Peripheral Vein, Percutaneous Approach, New Technology Group 5 (ICD-10-PCS; 2020-06-09)
DX: A41.89 Other specified sepsis (principal); U07.1 COVID-19; I21.A1 Myocardial infarction type 2; J96.01 Acute respiratory failure with hypoxia; J12.82 Pneumonia due to coronavirus disease 2019; G93.1 Anoxic brain damage, not elsewhere classified; G93.41 Metabolic encephalopathy; I50.43 Acute on chronic combined systolic (congestive) and diastolic (congestive) heart failure; E87.6 Hypokalemia; I11.0 Hypertensive heart disease with heart failure; E78.5 Hyperlipidemia, unspecified; E87.0 Hyperosmolality and hypernatremia; E66.01 Morbid (severe) obesity due to excess calories; I27.21 Secondary pulmonary arterial hypertension; N17.9 Acute kidney failure, unspecified; J98.2 Interstitial emphysema; E11.65 Type 2 diabetes mellitus with hyperglycemia; Z79.4 Long term (current) use of insulin; Z68.27 Body mass index [BMI] 27.0-27.9, adult
CPT/HCPCS: 36415; 36600; 70450; 71045; 71275; 74176; 80048; 80053; 80061; 80307; 80320; 81001; 82140; 82306; 82570; 82728; 82805; 82962; 83036; 83605; 83615; 83735; 83880; 83930; 83935; 84100; 84300; 84484; 85007; 85025; 85027; 85379; 85610; 85730; 86141; 87040; 87426; 93005; 93306; 94640; 94660; 96365; 96366; 96367; 96372; 96375; G0378; J0696; J1100; J1815; J2001; J3480; J3490

== ENCOUNTER 2025-03-04 15:20 | Emergency (ER) | payer MEDICARE, MEDICAID ==
[~2025-03-04] VITALS: Ht 167.6 cm; Wt 96.0 kg
--- NOTE | 2025-03-04 15:58 | ED.PDOC ---
HPI (NEURO) HPI Comments This patient is a obese 69 y/o F, with PMHx of DM and HTN presents to the ED for CC of dizziness. Patient states, she has been experiencing symptoms of dizziness x1day. Patient further reports, previous dizziness episode [id number] ago for which she was worked up for; all imagining and testing were unremarkable. Patient denies nausea, vomiting, headache, or blurred vision. No other symptoms or modifying factors are present at this time. Vital signs were stable. Chief Complaint: Dizziness Time Seen by MD: 15:00 Reviewed Notes: Nurses Notes, Medications, Allergies Information Source: Patient Mode of Arrival: Ambulatory Severity: Moderate Dizziness/Weakness Severity: Unable to do activities Headache Severity: None Timing: Days Duration: Since onset Prehospital treatment: None Onset: At rest Circumstances: Spontaneous Symptoms: Vertigo History of: None Modifying factors: Nothing Associated Signs and Symptoms: None Past Medical History PAST MEDICAL HISTORY: DM, HTN Surgical History: Denies all surgeries [employer] History: Denies all [employer] Hx Family History Family History: Reviewed,noncontributory to illness Social History Smoker: Non-Smoker Alcohol: Denies ETOH Use Drugs: Denies Drug Use Lives In: Home Constitutional: denies: chills, diaphoresis, fatigue, fever, malaise, sweats, weakness, others EENTM: denies: blurred vision, double vision, ear bleeding, ear discharge, ear drainage, ear pain, ear ringing, eye pain, eye redness, hearing loss, mouth pain, mouth swelling, nasal discharge, nose bleeding, nose congestion, nose pain, photophobia, tearing, throat pain, throat swelling, voice changes, others Respiratory: denies: cough, hemoptysis, orthopnea, SOB at rest, shortness of breath, SOB with excertion, stridor, wheezing, others Cardiovascular: denies: chest pain, dizzy spells, diaphoresis, Dyspnea on exertion, edema, irregular heart beat, left arm pain, lightheadedness, palpitations, PND, syncope, others Gastrointestinal: reports: nausea; denies: abdomen distended, abdominal pain, blood streaked bowels, constipated, diarrhea, dysphagia, difficulty swallowing, hematemesis, melena, poor appetite, poor fluid intake, rectal bleeding, rectal pain, vomiting, others Genitourinary: denies: abnormal vagina bleeding, burning, dyspareunia, dysuria, flank pain, frequency, hematuria, incontinence, pain, , vagina discharge, urgency, others Neurological: reports: dizziness; denies: fainting, headache, left sided numbness, left sided weakness, numbness, paresthesia, pre-existing deficit, right sided numbness, right sided weakness, seizure, speech problems, tingling, tremors, weakness, others Musculoskeletal: denies: back pain, gout, joint pain, joint swelling, muscle pain, muscle stiffness, neck pain, others Integumetry: denies: bruises, change in color, change in hair/nails, dryness, laceration, lesions, lumps, rash, wounds, others Allergic/Immunocompromised: denies: Difficulty Healing, Frequent Infections, Hives, Itching, others Hematologic/Lymphatic: denies: anemia, blood clots, easy bleeding, easy bruising, swollen glands, others Endocrine: denies: excessive hunger, excessive sweating, excessive thirst, excessive urination, flushing, intolerance to cold, intolerance to heat, unexplained weight gain, unexplained weight loss, others Psychiatric: denies: anxiety, bipolar disorder, depression, hopeless, panic disorder, schizophrenia, sleepless, suicidal, others All Other Systems: Reviewed and Negative Physical Exam General Appearance: Moderate Distress (Patient was in [id number] distress due to dizziness concerns.), Obese HEENT: Normal ENT Inspection, Pharynx Normal, TMs Normal Neck: Full Range of Motion, Non-Tender, Normal, Normal Inspection Respiratory: Chest Non-Tender, Lungs Clear, No Accessory Muscle Use, No Respiratory Distress, Normal Breath Sounds Cardiovascular: No Edema, No JVD, No Murmur, No Gallop, Normal Peripheral Pulses, Regular Rate/Rhythm Breast Exam: Deferred Gastrointestinal: No Organomegaly, Non Tender, No Pulsatile Mass, Normal Bowel Sounds, Soft Genitalia: Deferred Pelvic: Deferred Rectal: Deferred Extremities: Normal capillary refill, Non-tender, Pedal edema Neurologic: Alert Cerebellar Function: NOT DONE Reflexes: NOT DONE Skin: Dry, Normal Color, Warm Lymphatic: No Adenopathy Was a procedure done? Was a procedure done?: No Differential Diagnosis (SZ) General Weakness: Dehydration, Electrolyte imbalance, Vertigo: central, Vertigo: peripheral, Other (UTI, acute coronary syndrome) X-Ray, Labs, Meds, VS Vital Signs Date Time Temp Pulse Resp B/P (MAP) Pulse Ox O2 Delivery O2 Flow Rate FiO2 03/04/25 22:53 98.5 78 18 154/54 (87) 95 98.5 03/04/25 20:12 98.5 70 18 157/82 (107) 95 98.5 03/04/25 16:51 97.9 82 20 121/52 (75) 98 97.9 03/04/25 15:21 99.3 87 16 160/65 96 99.3 Lab Test 03/04/25 22:00 03/04/25 17:25 03/04/25 15:55 Range/Units Urine Color Light-yellow Yellow Urine Clarity Clear Clear Urine pH 5.5 5.0-9.0 Urine Specific Joes 1.024 1.001-1.035 Urine Protein Negative Negative Urine Ketones Negative Negative Urine Blood 1+ H Negative /uL Urine Nitrite Negative Negative Urine Bilirubin Negative Negative Urine Urobilinogen Normal Negative mg/dL Urine Leukocyte Esterase Negative Negative /uL Urine RBC 12 0 - 4 /hpf Urine Microscopic WBC 1 0-5 /HPF Urine Squamous Epithelial Cells Few <5 /hpf Urine Bacteria None seen None Seen /hpf Urine Glucose Normal Normal mg/dL Troponin I High Sensitivity 5 6 </=34 ng/L White Blood Count 7.5 4.4-10.8 10^3/uL Red Blood Count 4.25 4.0-5.20 10^6/uL Hemoglobin 12.5 12.2-16.2 g/dL Hematocrit 37.1 36.0-46.0 % Mean Corpuscular Volume 87.3 80.0-100.0 fL Mean Corpuscular Hemoglobin 29.4 28.0-32.0 pg Mean Corpuscular Hemoglobin Concent 33.7 32.0-36.0 g/dL Red Cell Distribution Width 13.6 11.8-14.3 % Platelet Count 363 140-450 10^3/uL Mean Platelet Volume 6.9 6.9-10.8 fL Neutrophils (%) (Auto) 64.2 37.0-80.0 % Lymphocytes (%) (Auto) 29.0 10.0-50.0 % Monocytes (%) (Auto) 4.7 0.0-12.0 % Eosinophils (%) (Auto) 1.5 0.0-7.0 % Basophils (%) (Auto) 0.6 0.0-2.0 % Neutrophils # (Auto) 4.8 1.6-8.6 10 ^3/uL Lymphocytes # (Auto) 2.2 0.4-5.4 10 ^3/uL Monocytes # (Auto) 0.4 0-1.3 10 ^3/uL Eosinophils # (Auto) 0.1 0-0.8 10 ^3/uL Basophils # (Auto) 0 0-0.2 10 ^3/uL Nucleated Red Blood Cells 0.0 % D-Dimer, Quantitative 5.27 H 0.0-0.49 mg/L FEU Sodium Level 143 136-145 mmol/L Potassium Level 4.4 3.5-5.1 mmol/L Chloride Level 106 98-107 mmol/L Carbon Dioxide Level 27 20-31 mmol/L Anion Gap 10 5-15 Blood Urea Nitrogen 19 9-23 mg/dL Creatinine 0.83 0.550-1.02 mg/dL Glomerular Filtration Rate Calc 77 >90 mL/min BUN/Creatinine Ratio 22.9 H 10.0-20.0 Serum Glucose 110 H 74-106 mg/dL Calcium Level 9.2 8.7-10.4 mg/dL B-Type Natriuretic Peptide 137.11 0-100 pg/mL Current Medications Medications (Trade) Dose Ordered Sig/Ronal Route Start Time Stop Time Status Last Admin Meclizine HCl (Antivert Tablet) 25 mg ONCE ONCE PO 03/04/25 15:45 03/04/25 15:46 DC 03/04/25 16:21 [place] [id number] Ph: [phone] DIAGNOSTIC IMAGING Diagnostic Imaging Report : [id number] Signed PATIENT: MARCIN PRICE ACCT: [id number] UNIT: [id number] : 1955 LOC: ER ROOM / BED: / AGE / SEX: 69 / F ADM STATUS: REG ER SERVICE [id number] ORDERING PHYSICIAN: ROSEY SMART PAC PROCEDURE(s): CXRP - CHEST PORTABLE REASON: Shortness of breath ORDER NUMBER(s): [id number], ACCESSION NUMBER(s): [id number] EXAM: XY CHEST PORTABLE CLINICAL HISTORY: Shortness of breath TECHNIQUE: Single AP view of the chest WID: COMPARISON: CHEST PORTABLE on DOS: 06/19/20 FINDINGS: Lines and tubes: None Chest: The heart size and pulmonary vasculature is within normal limits. Calcified plaque projects over the aortic arch. No pleural effusion, pneumothorax, or consolidation. The osseous structures are grossly intact. Multilevel thoracic spondylosis. IMPRESSION: 1. No acute cardiopulmonary abnormality. ATED BY: CIRILO CUADRA MD DICTATED DATE/TIME: 03/04/25 160 SIGNED BY: CIRILO CUADRA MD SIGNED DATE/TIME: 03/04/251606 CC: X-Ray, Labs, Meds, VS Comment All studies performed the ED were evaluated by me personally. Serum studies were relatively unremarkable except for a significant elevated D-dimer. CT angio of chest was unremarkable for any PE formation. Standard chest x-ray was unremarkable for any consolidation or structural cardiac concerns. Patient had good response status post medication dispensed. Advised patient to follow up with the primary care provider as needed for evaluation and utilize medication for relief. Time of 1ST Reevaluation: :08 Reevaluation 1ST: Improved Consultation: PCP Patient Education/Counseling: Diagnosis, Treatment Family Education/Counseling: Diagnosis, Treatment, No Family Present Departure 1 Departure Time of Disposition: : Impression: Primary Impression: Dizziness Disposition: HOME / SELF CARE / HOMELESS Condition: Stable Additional Instructions: Advise utilizing medication as needed for symptomatic relief. If symptoms continue, patient will need to follow up with the primary care provider for probable ENT referral and evaluation. e-Prescriptions Ondansetron Odt 4MG Tab (ZOFRAN PO) 4 Mg Tb 4 MG PO Q6HP PRN, #15 TAB ODT TAB-DISSOLVE IN MOUTH, THEN SWALLOW Prov: ROSEY SMART PAC 03/05/25 Meclizine HCl (Meclizine 25) 25 Mg Tab 25 MG PO Q8HP PRN, #10 TAB Prov: ROSEY SMART PAC 03/05/25 Discharged With: Self, Friend Critical Care Note Critical Care Time?: No Stability Stability form required: No Heart Score Heart Score: Heart Score Response (Comments) Value History N/A 0 EKG N/A 0 Age N/A 0 Risk Factors N/A 0 Troponin N/A 0 Total 0 I personally scribed for ROSEY SMART PAC ([email or web address]) on 03/04/25 at 15:58. Electronically submitted by Alicja Berrios ([email or web address]). I personally scribed for ROSEY SMART PAC ([email or web address]) on 03/04/25 at 16:20. Electronically submitted by Alicja Berrios ([email or web address]). ROSEY SMART PAC Mar 04, 2025 15:58
[2025-03-04 16:10] LABS: Hematocrit 37.1 % (36.0-46.0); Hemoglobin 12.5 g/dL (12.2-16.2); Mean Corpuscular Hemoglobin 29.4 pg (28.0-32.0); Mean Corpuscular Volume 87.3 fL (80.0-100.0); Nucleated Red Blood Cells % 0.0 %
--- NOTE | 2025-03-04 16:10 | DVH ---
EXAM: XY CHEST PORTABLE CLINICAL HISTORY: Shortness of breath TECHNIQUE: Single AP view of the chest WID: COMPARISON: CHEST PORTABLE on DOS: 06/19/20 FINDINGS: Lines and tubes: None Chest: The heart size and pulmonary vasculature is within normal limits. Calcified plaque projects over the aortic arch. No pleural effusion, pneumothorax, or consolidation. The osseous structures are grossly intact. Multilevel thoracic spondylosis. IMPRESSION: 1. No acute cardiopulmonary abnormality.
[2025-03-04 16:14] LABS: Chloride 106 mmol/L (98-107); Potassium 4.4 mmol/L (3.5-5.1); Sodium 143 mmol/L (136-145)
[2025-03-04 16:15] LABS: Anion Gap 10 (5-15); Carbon Dioxide 27 mmol/L (20-31)
[2025-03-04 16:16] LABS: Calcium 9.2 mg/dL (8.7-10.4)
[2025-03-04 16:21] LABS: BUN/Creatinine Ratio 22.9 (10.0-20.0); Blood Urea Nitrogen 19 mg/dL (9-23)
[2025-03-04] MEDS: MECLIZINE HCL 25 MG TAB PO ONE (16:21)
[2025-03-04 16:22] LABS: Glucose 110 mg/dL (74-106)
[2025-03-04 22:53] VITALS: BP 154/54; PULSE 78; RESP 18; TEMP 98.5; O2SAT 95
[2025-03-04 22:54] LABS: Urine Protein, UAD Negative (Negative)
[2025-03-05] MEDS: IOHEXOL 350 MG/ML 100ML IJ ONE (00:21)
--- NOTE | 2025-03-05 01:01 | DVH ---
CTA Chest with intravenous contrast INDICATION: Elevated D-dimer COMPARISON: XY CHEST PORTABLE on DOS: 03/04/25, CHEST PORTABLE on DOS: 06/19/20, CHEST PORTABLE on DOS: 06/13/20, CT ANGIO CHEST CONTRAST on DOS: 06/09/20 TECHNIQUE: Multidetector spiral CTA of the chest was performed of the chest with intravenous contrast . PULMONARY ANGIOGRAPHY PROTOCOL was utilized using a bolus-tracking technique centered on the main p ulmonary artery. Axial, coronal and sagittal multiplanar and MIP reformats were performed. Radiation dose : 1. Chest: CTDI volume is 25.23 mGy. Dose-length product is 923.7 mGy*cm The dose indicators for CT are the volume computed tomography (CT) dose index (CTDIvol) and the dose length product (DLP), and are measured in units of mGy and mGy-cm, respectively. These indicators are not patient dose, but values generated from the CT scanner acquisition factors. The report includes radiation exposure data for exposures received during this examination. Findings: Pulmonary artery: No pulmonary embolism Lower neck: Normal thyroid. Lungs: No focal consolidation, pleural effusion or pneumothorax. Heart/Vascular Structures: Normal heart size. No pericardial effusion. Lymph Nodes: No adenopathy Pleura: No pleural effusion or significant pneumothorax. Musculoskeletal: No acute osseous abnormality. Soft tissues: Normal. Upper abdomen: Limited portions of the upper abdomen are unremarkable. IMPRESSION: No pulmonary embolism. No acute thoracic finding.
[2025-03-05] MEDS ORDERED: MECL1TAB42 PO (01:10)
[2025-03-05] MEDS ORDERED: ZOFR4T PO (01:10)
== END 2025-03-05 01:58 | disposition home or self-care (01) ==
LOC: ER 15:24
DX: R42 Dizziness and giddiness (principal); I10 Essential (primary) hypertension; E11.9 Type 2 diabetes mellitus without complications; Z79.899 Other long term (current) drug therapy
CPT/HCPCS: 36415; 71045; 71275; 80048; 81001; 83880; 84484; 85025; 85379; 99285; J8597; Q9967